=== PATIENT | female | born 1995 | race Caucasian/White ===

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

== ENCOUNTER 2017-01-08 07:50 | Observation (INO) | payer MEDICAID ==
[~2017-01-08 07:50] MED LIST: PREN-96 PO
[2017-01-08] MEDS ORDERED: NALBUPHINE HCL 10 MG/1ml INJECTION IM ONE (09:15)
== END 2017-01-08 12:00 | disposition home or self-care (01) | DRG 566 ==
LOC: LDRP 07:50
PROVIDERS: ADMIT Obstetrics & Gynecology; ATTEND Obstetrics & Gynecology
DX: O62.9 Abnormality of forces of labor, unspecified (principal); Z3A.38 38 weeks gestation of pregnancy
CPT/HCPCS: 59025; 81002; 96372; G0378; J2300

== ENCOUNTER 2017-01-17 16:00 | Observation (INO) | payer MEDICAID ==
[2017-01-17 16:58] LABS: Urine Bilirubin Negative (Negative); Urine Blood 1+ /uL (Negative); Urine Color Yellow (Yellow); Urine Glucose Normal (Normal); Urine Ketone Negative (Negative); Urine Nitrite POSITIVE (Negative); Urine RBC 16 /hpf (0 - 4); Urine Squamous Epithelial Cell MANY /hpf (<5); Urine Urobilinogen Normal (Negative); Urine WBC Clumps PRESENT /hpf (None Seen); Urine pH 6.5 (5.0-8.0)
[2017-01-17] MEDS ORDERED: NITR50CA24 PO (18:13)
== END 2017-01-17 17:00 | disposition home or self-care (01) | DRG 566 ==
LOC: LDRP 16:00
PROVIDERS: ADMIT Obstetrics & Gynecology; ATTEND Obstetrics & Gynecology
DX: O48.0 Post-term pregnancy (principal); Z3A.40 40 weeks gestation of pregnancy
CPT/HCPCS: 59025; 76818; 81001; 81002; G0378

== ENCOUNTER 2017-04-04 11:46 | Inpatient (IN) | payer MEDICAID ==
[~2017-04-04] VITALS: Ht 175.3 cm; Wt 66.6 kg
[2017-04-04] MEDS ORDERED: SODIUM CHLORIDE 0.9% 1,000 ML IVB ONE (12:05)
[2017-04-04] MEDS ORDERED: PANTOPRAZOLE 40 MG/10 ML VIAL IV STA (12:05)
[2017-04-04] MEDS ORDERED: MORPHINE SULF INJ 2 MG/ML SYRINGE 1ML IV ONE ×2 (12:15→14:15)
[2017-04-04] MEDS ORDERED: ONDANSETRON HCL 4 MG/2 ML VIAL IV ONE (12:15)
[2017-04-04 12:38] LABS: Basophils # (auto) 0.1 uL; Basophils % (auto) 0.5 % (0.0-2.0); Eosinophils # (auto) 0 uL; Hemoglobin 10.7 g/dL (12.2-16.2); Lymphocytes # (auto) 0.6 uL; Lymphocytes % (auto) 3.6 % (10.0-50.0); Mean Corpuscular Hgb Conc. 32.4 g/dL (32.0-36.0); Mean Corpuscular Volume 83.5 fL (80.0-100.0); Mean Platelet Volume 8.2 fL (6.9-10.8); Monocytes # (auto) 1.2 uL; Neutrophils # (auto) 15.8 uL; Neutrophils % (auto) 88.9 % (37.0-80.0); Platelet Count (auto) 260 10^3/uL (140-450); Red Cell Distribution Width 16.6 % (11.8-14.3); White Blood Cell 17.8 10^3/uL (4.4-10.8)
[2017-04-04 13:00] LABS: Albumin 3.6 g/dL (3.4-5.0); BUN/Creatinine Ratio 9.9; Bilirubin, Total 1.1 mg/dL (0.2-1.0); Calcium 9.2 mg/dL (8.5-10.1); Magnesium 1.9 mg/dL (1.6-2.6); Potassium 3.3 mmol/L (3.5-5.1); Total Protein 8.1 g/dL (6.4-8.2)
[2017-04-04] MEDS ORDERED: LEVOFLOXACIN 500MG 100 ML IV ONE (14:15)
[2017-04-04 14:19] LABS: Urine Bilirubin Negative (Negative); Urine Blood 2+ /uL (Negative); Urine Color Yellow (Yellow); Urine Glucose Normal (Normal); Urine Ketone Negative (Negative); Urine Mucus FEW (None Seen); Urine Nitrite Negative (Negative); Urine RBC 11 /hpf (0 - 4); Urine Squamous Epithelial Cell FEW /hpf (<5); Urine Urobilinogen Normal (Negative); Urine WBC Clumps PRESENT /hpf (None Seen); Urine pH 6.5 (5.0-8.0)
[2017-04-04] MEDS ORDERED: POTASSIUM CHL 10 Meq TABLET PO ONE (14:30)
[2017-04-04] MEDS ORDERED: LABETALOL HCL 5 MG/ML ML 20ML VIAL IV PRN (14:30)
[2017-04-04] MEDS ORDERED: HYDROcodone-ACET 5/325MG TAB PO PRN (14:30)
[2017-04-04] MEDS ORDERED: ACETAMINOPHEN 325 MG TAB PO PRN (14:30)
[2017-04-04] MEDS ORDERED: DOCUSATE SOD 100 MG CAP PO PRN (14:30)
[2017-04-04] MEDS ORDERED: TEMAZEPAM 15 MG CAP PO PRN (14:30)
[2017-04-04] MEDS: SODIUM CHLORIDE 0.9% 1,000 ML IV SCH ×2 (14:37→22:40)
[2017-04-04] MEDS ORDERED: VANCOMYCIN PER PHARMACY 0 MG IV SCH (16:50)
[2017-04-04 17:16] VITALS: BP_SYST 112; BP_DIAS 65; BP_DIAS 96
[2017-04-04] MEDS ORDERED: VANCOMYCIN 1GM/250ML 250 ML IV ONE (17:45)
[2017-04-04] MEDS: ONDANSETRON HCL 4 MG/2 ML VIAL IV PRN ×2 (18:41→23:21)
[2017-04-04] MEDS: MORPHINE SULF INJ 2 MG/ML SYRINGE 1ML IV PRN ×2 (19:03→23:21)
[2017-04-04] MEDS: FAMOTIDINE 20 MG TAB PO SCH (21:51)
[2017-04-04 22:00] VITALS: BP 97/52
[2017-04-04 23:10] VITALS: BP 114/67
[2017-04-05] MEDS: SODIUM CHLORIDE 0.9% 1,000 ML IV SCH ×3 (02:21→23:40)
[2017-04-05 05:00] VITALS: BP 99/52
[2017-04-05 05:52] LABS: Basophils # (auto) 0 uL; Eosinophils # (auto) 0 uL; Eosinophils % (auto) 0.2 % (0.0-7.0); Hemoglobin 8.1 g/dL (12.2-16.2); Monocytes # (auto) 0.4 uL
[2017-04-05 05:56] LABS: INR 1.1 (0.9-1.15)
[2017-04-05 05:57] LABS: Basophils % (auto) 0.5 % (0.0-2.0); Hematocrit 24.1 % (36.0-46.0); Lymphocytes # (auto) 0.7 uL; Lymphocytes % (auto) 7.3 % (10.0-50.0); Mean Corpuscular Hemoglobin 27.6 pg (28.0-32.0); Mean Corpuscular Hgb Conc. 33.3 g/dL (32.0-36.0); Mean Corpuscular Volume 82.7 fL (80.0-100.0); Mean Platelet Volume 8.3 fL (6.9-10.8); Monocytes % (auto) 4.2 % (0.0-12.0); Neutrophils % (auto) 87.8 % (37.0-80.0); Platelet Count (auto) 152 10^3/uL (140-450); Red Cell Distribution Width 16.2 % (11.8-14.3); White Blood Cell 9.1 10^3/uL (4.4-10.8)
[2017-04-05 06:16] LABS: Albumin 2.4 g/dL (3.4-5.0); Calcium 8.6 mg/dL (8.5-10.1); Potassium 3.7 mmol/L (3.5-5.1)
[2017-04-05 06:19] LABS: Bilirubin, Total 0.5 mg/dL (0.2-1.0); Total Protein 6.2 g/dL (6.4-8.2)
[2017-04-05 08:00] VITALS: BP 99/59
[2017-04-05] MEDS: MORPHINE SULF INJ 2 MG/ML SYRINGE 1ML IV PRN ×2 (08:44→20:18)
[2017-04-05 09:12] VITALS: BP 99/59
[2017-04-05] MEDS: LEVOFLOXACIN 250MG 50 ML IV SCH (10:00)
[2017-04-05] MEDS ORDERED: VANCOMYCIN 1GM/250ML 250 ML IV SCH ×2 (12:00→18:00)
[2017-04-05] MEDS ORDERED: LEVOFLOXACIN 500MG 100 ML IV ONE (12:37)
[2017-04-05] MEDS ORDERED: fentaNYL CITRATE 100 MCG/2 ML VL ONE (12:55)
[2017-04-05] MEDS ORDERED: MIDAZOLAM HCL 1MG/1ML-2 ML VIAL ONE (12:55)
[2017-04-05 13:00] VITALS: BP 98/53
[2017-04-05] MEDS ORDERED: DEXAMETHASONE SOD PHOS 10MG/1ML VIAL INJ ONE (13:00)
[2017-04-05] MEDS ORDERED: LABETALOL HCL 5 MG/ML 4ML SYRINGE IV PRN (13:00)
[2017-04-05] MEDS ORDERED: KETOROLAC TROMETH 30 MG/ML 1ML VIAL IV ONE (13:00)
[2017-04-05] MEDS ORDERED: ONDANSETRON HCL 4 MG/2 ML VIAL IV ONE (13:00)
[2017-04-05] MEDS ORDERED: HYDROmorphone HCL 2 MG/ML VL IV PRN (13:00)
[2017-04-05] MEDS ORDERED: ePHEDrine SULFATE 50 MG/ML AMP IV PRN (13:00)
[2017-04-05] MEDS ORDERED: KETOROLAC TROMETH 30 MG/ML 1ML VIAL ONE (13:03)
[2017-04-05] MEDS ORDERED: MORPHINE SULF INJ 2 MG/ML SYRINGE 1ML IV ONE (14:00)
[2017-04-05 16:58] VITALS: BP 107/69
[2017-04-05] MEDS: MULTIPLE VITAMIN TAB PO SCH (18:31)
[2017-04-05] MEDS: FAMOTIDINE 20 MG TAB PO SCH ×2 (18:31→21:29)
[2017-04-05] MEDS: ONDANSETRON HCL 4 MG/2 ML VIAL IV PRN (20:17)
[2017-04-05 21:58] VITALS: BP 105/70
[2017-04-06 05:20] VITALS: BP 101/65
[2017-04-06 06:20] LABS: Basophils # (auto) 0 uL; Basophils % (auto) 0.1 % (0.0-2.0); Eosinophils # (auto) 0 uL; Hematocrit 28.4 % (36.0-46.0); Hemoglobin 9.3 g/dL (12.2-16.2); Lymphocytes # (auto) 0.6 uL; Lymphocytes % (auto) 7.4 % (10.0-50.0); Mean Corpuscular Hemoglobin 27.3 pg (28.0-32.0); Mean Corpuscular Hgb Conc. 32.9 g/dL (32.0-36.0); Mean Corpuscular Volume 83.1 fL (80.0-100.0); Mean Platelet Volume 8.5 fL (6.9-10.8); Monocytes # (auto) 0.3 uL; Monocytes % (auto) 3.5 % (0.0-12.0); Neutrophils # (auto) 6.8 uL; Platelet Count (auto) 184 10^3/uL (140-450); Red Cell Distribution Width 15.8 % (11.8-14.3); White Blood Cell 7.6 10^3/uL (4.4-10.8)
[2017-04-06 06:43] LABS: Albumin 2.8 g/dL (3.4-5.0); BUN/Creatinine Ratio 18.9; Bilirubin, Total 0.4 mg/dL (0.2-1.0); Calcium 9.1 mg/dL (8.5-10.1); Potassium 4.2 mmol/L (3.5-5.1); Total Protein 7.1 g/dL (6.4-8.2)
[2017-04-06] MEDS: SODIUM CHLORIDE 0.9% 1,000 ML IV SCH (07:06)
[2017-04-06 08:40] VITALS: BP 118/64
[2017-04-06] MEDS: FAMOTIDINE 20 MG TAB PO SCH (10:07)
[2017-04-06] MEDS: LEVOFLOXACIN 250MG 50 ML IV SCH (10:07)
[2017-04-06] MEDS: MULTIPLE VITAMIN TAB PO SCH (10:07)
[2017-04-06] MEDS ORDERED: LEVO250T45 PO (10:24)
[2017-04-06 11:52] VITALS: BP 118/64
[2017-04-06 12:50] VITALS: BP 120/69
== END 2017-04-06 12:48 | disposition home or self-care (01) | DRG 720 ==
LOC: ER 11:46 → OVERFLOW 11:47 → WEST WING 17:18
PROVIDERS: ADMIT Internal Medicine; ATTEND Nurse Practitioner Acute Care
PROC: 0T778DZ Dilation of Left Ureter with Intraluminal Device, Via Natural or Artificial Opening Endoscopic (ICD-10-PCS; principal; 2017-04-05 12:58)
DX: A41.9 Sepsis, unspecified organism (principal); N17.0 Acute kidney failure with tubular necrosis; N13.2 Hydronephrosis with renal and ureteral calculous obstruction; D63.8 Anemia in other chronic diseases classified elsewhere; E44.1 Mild protein-calorie malnutrition; E87.6 Hypokalemia; I12.9 Hypertensive chronic kidney disease with stage 1 through stage 4 chronic kidney disease, or unspecified chronic kidney disease; K76.0 Fatty (change of) liver, not elsewhere classified; N18.3 Chronic kidney disease, stage 3 (moderate); N12 Tubulo-interstitial nephritis, not specified as acute or chronic; G47.00 Insomnia, unspecified; K59.00 Constipation, unspecified; Z91.018 Allergy to other foods; Z79.899 Other long term (current) drug therapy; Z68.21 Body mass index [BMI] 21.0-21.9, adult; Z88.0 Allergy status to penicillin
CPT/HCPCS: 36415; 74000; 74176; 76000; 80053; 80202; 81001; 82150; 83605; 83690; 83735; 84443; 84702; 85025; 85610; 87040; 87086; 96365; 96375; C9113; J1100; J1885; J1956; J2250; J2405

== ENCOUNTER 2021-07-18 02:37 | Emergency (ER) | payer MEDICAID ==
[~2021-07-18] VITALS: Ht 180.3 cm; Wt 88.5 kg
[~2021-07-18 02:37] MED LIST changes: +LEVO-28 PO; -PREN-96 PO
[2021-07-18 04:49] LABS: Urine Bacteria FEW /hpf (None Seen); Urine Blood Negative /uL (Negative); Urine Mucus FEW (None Seen); Urine Specific Gravity 1.019 (1.001-1.035); Urine WBC 28 /hpf (0 - 5)
[2021-07-18] MEDS ORDERED: SODIUM CHLORIDE 0.9% 1,000 ML IVB ONE (07:00)
[2021-07-18] MEDS ORDERED: cefTRIAXone 1GM/50ML D5W 50 ML IV ONE (07:00)
[2021-07-18 07:04] LABS: Basophils # (auto) 0 10 ^3/uL (0-0.2); Basophils % (auto) 0.4 % (0.0-2.0); Eosinophils # (auto) 0 10 ^3/uL (0-0.8); Eosinophils % (auto) 0.2 % (0.0-7.0); Hematocrit 33.8 % (36.0-46.0); Hemoglobin 11.6 g/dL (12.2-16.2); Lymphocytes % (auto) 15.3 % (10.0-50.0); Mean Corpuscular Hemoglobin 27.7 pg (28.0-32.0); Mean Corpuscular Hgb Conc. 34.4 g/dL (32.0-36.0); Mean Corpuscular Volume 80.4 fL (80.0-100.0); Monocytes # (auto) 0.5 10 ^3/uL (0-1.3); Monocytes % (auto) 7.4 % (0.0-12.0); Neutrophils # (auto) 4.9 10 ^3/uL (1.6-8.6); Neutrophils % (auto) 76.7 % (37.0-80.0); Red Cell Distribution Width 15.7 % (11.8-14.3); White Blood Cell 6.4 10^3/uL (4.4-10.8)
[2021-07-18 07:17] LABS: Albumin 3.2 g/dL (3.4-5.0); BUN/Creatinine Ratio 9.2; Potassium 3.6 mmol/L (3.5-5.1)
[2021-07-18 07:20] LABS: Bilirubin, Total 0.7 mg/dL (0.2-1.0)
[2021-07-18 12:02] VITALS: BP 92/58
== END 2021-07-18 12:10 | disposition home or self-care (01) ==
LOC: ER 02:37
DX: O21.0 Mild hyperemesis gravidarum (principal); O23.42 Unspecified infection of urinary tract in pregnancy, second trimester; N39.0 Urinary tract infection, site not specified; E86.1 Hypovolemia; R55 Syncope and collapse; Z3A.22 22 weeks gestation of pregnancy
CPT/HCPCS: 36415; 80053; 81001; 81025; 83605; 83735; 84443; 84702; 85025; 85379; 87040; 87086; 96365; 99285; J0696; J7030

== ENCOUNTER 2021-12-23 08:34 | Day surgery (SDC) | payer MEDICAID ==
[2021-12-22 14:38] LABS: Basophils # (auto) 0 10 ^3/uL (0-0.2); Basophils % (auto) 0.2 % (0.0-2.0); Eosinophils # (auto) 0 10 ^3/uL (0-0.8); Eosinophils % (auto) 0.4 % (0.0-7.0); Hematocrit 32.6 % (36.0-46.0); Hemoglobin 10.7 g/dL (12.2-16.2); Lymphocytes # (auto) 1.5 10 ^3/uL (0.4-5.4); Lymphocytes % (auto) 17.9 % (10.0-50.0); Mean Corpuscular Hgb Conc. 32.8 g/dL (32.0-36.0); Mean Corpuscular Volume 88.6 fL (80.0-100.0); Monocytes # (auto) 0.5 10 ^3/uL (0-1.3); Monocytes % (auto) 5.8 % (0.0-12.0); Neutrophils # (auto) 6.5 10 ^3/uL (1.6-8.6); Neutrophils % (auto) 75.7 % (37.0-80.0); Red Blood Cells 3.68 10^6/uL (4.0-5.20); White Blood Cell 8.6 10^3/uL (4.4-10.8)
[2021-12-22 15:07] LABS: Albumin 2.7 g/dL (3.4-5.0); BUN/Creatinine Ratio 8.4; Calcium 8.7 mg/dL (8.5-10.1); Potassium 3.9 mmol/L (3.5-5.1)
[2021-12-22 15:09] LABS: INR 0.94 (0.9-1.15); Partial Thromboplastin Time 24.1 sec (24.6-33.4)
[2021-12-22 15:10] LABS: Bilirubin, Total 0.6 mg/dL (0.2-1.0); Total Protein 6.9 g/dL (6.4-8.2)
[2021-12-22 15:23] LABS: Urine Bacteria FEW /hpf (None Seen); Urine Blood Negative /uL (Negative); Urine Mucus FEW (None Seen); Urine Specific Gravity 1.022 (1.001-1.035); Urine WBC 26 /hpf (0 - 5)
[~2021-12-23] VITALS: Ht 180.3 cm; Wt 98.4 kg
[2021-12-23] MEDS ORDERED: LIDOCAINE 1%-Mpf/Epinephrine 1:200,000 ONE (09:49)
[2021-12-23 11:09] VITALS: BP 110/58
== END 2021-12-23 11:00 | disposition home or self-care (01) ==
LOC: SUR 08:34
PROVIDERS: ATTEND Surgery
DX: N64.59 Other signs and symptoms in breast (principal); D24.1 Benign neoplasm of right breast; L91.8 Other hypertrophic disorders of the skin; Z98.890 Other specified postprocedural states; Z79.899 Other long term (current) drug therapy; Z20.822 Contact with and (suspected) exposure to COVID-19; Z88.0 Allergy status to penicillin; Z86.2 Personal history of diseases of the blood and blood-forming organs and certain disorders involving the immune mechanism; Z82.49 Family history of ischemic heart disease and other diseases of the circulatory system; Z80.8 Family history of malignant neoplasm of other organs or systems; Z84.1 Family history of disorders of kidney and ureter
CPT/HCPCS: 19120; 36415; 80053; 81001; 84702; 85025; 85610; 85730; 88305; J2001; U0003

== ENCOUNTER 2022-02-17 09:03 | Observation (INO) | payer MEDICAID ==
[~2022-02-17 09:03] MED LIST changes: +CEPH-322 PO; +PREN-129 PO
== END 2022-02-17 11:10 | disposition home or self-care (01) ==
LOC: LDRP 09:18 → UNDOADMOB 09:51 → LDRP 09:51 → UNDODISOB 11:10
PROVIDERS: ADMIT Obstetrics & Gynecology; ATTEND Obstetrics & Gynecology
DX: O48.0 Post-term pregnancy (principal); O26.893 Other specified pregnancy related conditions, third trimester; N89.8 Other specified noninflammatory disorders of vagina; Z3A.40 40 weeks gestation of pregnancy
CPT/HCPCS: 59025; 76818; 81002; 94760; G0378

== ENCOUNTER 2022-02-20 08:50 | Inpatient (IN) | payer MEDICAID ==
[~2022-02-20] VITALS: Ht 180.3 cm; Wt 102.5 kg
[2022-02-20] MEDS ORDERED: PROMETHAZINE HCL 25 MG/ML 1ML IV PRN (09:15)
[2022-02-20] MEDS ORDERED: LIDOCAINE 2%HCL (LOCAL ANESTH.) INJ 10ml MDV IJ PRN (09:15)
[2022-02-20] MEDS ORDERED: DERMOPLAST 60ML BOTTLE TOP PRN (09:15)
[2022-02-20] MEDS ORDERED: LACTATED RINGER'S 1,000 ML IV SCH (09:15)
[2022-02-20] MEDS ORDERED: BUTORPHANOL TARTRATE 2 MG/1 ML VIAL IV PRN ×2 (09:15)
[2022-02-20] MEDS ORDERED: PHISODERM TOP SOLN 240ML BTL TOP PRN (09:15)
[2022-02-20] MEDS ORDERED: WITCH HAZEL-GLYCERIN PAD TOP PRN (09:15)
[2022-02-20 09:48] LABS: Basophils # (auto) 0 10 ^3/uL (0-0.2); Basophils % (auto) 0.4 % (0.0-2.0); Eosinophils # (auto) 0 10 ^3/uL (0-0.8); Eosinophils % (auto) 0.3 % (0.0-7.0); Hematocrit 31.6 % (36.0-46.0); Hemoglobin 10.6 g/dL (12.2-16.2); Lymphocytes # (auto) 1.7 10 ^3/uL (0.4-5.4); Lymphocytes % (auto) 16.5 % (10.0-50.0); Mean Corpuscular Hemoglobin 27.8 pg (28.0-32.0); Mean Corpuscular Hgb Conc. 33.5 g/dL (32.0-36.0); Mean Corpuscular Volume 82.9 fL (80.0-100.0); Monocytes # (auto) 0.6 10 ^3/uL (0-1.3); Neutrophils # (auto) 7.9 10 ^3/uL (1.6-8.6); Neutrophils % (auto) 76.8 % (37.0-80.0); Nucleated Red Blood Cells % 0.1 %; Red Blood Cells 3.81 10^6/uL (4.0-5.20); Red Cell Distribution Width 14.2 % (11.8-14.3); White Blood Cell 10.2 10^3/uL (4.4-10.8)
[2022-02-20 10:00] LABS: Albumin 2.4 g/dL (3.4-5.0); Calcium 8.5 mg/dL (8.5-10.1); INR 0.91 (0.9-1.15); Partial Thromboplastin Time 23.1 sec (24.6-33.4); Potassium 3.8 mmol/L (3.5-5.1)
[2022-02-20 10:03] LABS: BUN/Creatinine Ratio 10.9; Bilirubin, Total 0.4 mg/dL (0.2-1.0); Total Protein 6.2 g/dL (6.4-8.2)
[2022-02-20 10:27] LABS: Urine Bacteria FEW /hpf (None Seen); Urine Blood Negative /uL (Negative); Urine Specific Gravity 1.016 (1.001-1.035); Urine WBC 8 /hpf (0 - 5)
[2022-02-20 10:42] LABS: Alcohol, Urine < 3.0 mg/dL (0-10); Amphetamine Screen, Urine NEGATIVE (NEGATIVE); Barbiturate Scree,Urine NEGATIVE (NEGATIVE); Benzodiazephine Screen, Urine NEGATIVE (NEGATIVE); Cannabinoid Screen, Urine NEGATIVE (NEGATIVE); Cocaine Screen, Urine NEGATIVE (NEGATIVE); Opiate Scree,Urine NEGATIVE (NEGATIVE); Phencyclidine Screen, Urine NEGATIVE (NEGATIVE)
[2022-02-20] MEDS ORDERED: LACT. RINGERS/OXYTOCIN 20UNITS 1,000 ML IV SCH (11:00)
[2022-02-20] MEDS ORDERED: TERBUTALINE SULFATE 1 MG/ML 1ML VIAL SC PRN (11:00)
[2022-02-20] MEDS ORDERED: NALOXONE HCL 0.4 MG/ML VIAL IV ONE (16:15)
[2022-02-20] MEDS ORDERED: ePHEDrine SULFATE 50 MG/ML AMP IV ONE (16:15)
[2022-02-20] MEDS ORDERED: fentaNYL CITRATE 100 MCG/2 ML VL IV ONE (16:15)
[2022-02-20] MEDS ORDERED: ROPIVACAINE HCL 200 ML EPI SCH (16:15)
[2022-02-20] MEDS ORDERED: DOCUSATE SOD 100 MG CAP PO PRN (19:00)
[2022-02-20] MEDS ORDERED: ONDANSETRON ODT 4 MG TAB PO PRN (19:00)
[2022-02-20] MEDS ORDERED: ACETAMINOPHEN 325 MG TAB PO PRN (19:00)
[2022-02-20 23:00] VITALS: BP 125/75
[2022-02-21] MEDS: IBUPROFEN 800 MG TAB PO SCH ×4 (00:35→17:28)
[2022-02-21 03:00] VITALS: BP 103/51
[2022-02-21] MEDS ORDERED: IBUP800T26 PO ×2 (06:07)
[2022-02-21 06:46] VITALS: BP 103/55
[2022-02-21] MEDS ORDERED: LIDOCAINE HCL 2 %PF INJ 10ML AMP IJ ONE (07:00)
[2022-02-21] MEDS ORDERED: fentaNYL CITRATE 100 MCG/2 ML VL IV ONE (07:00)
[2022-02-21] MEDS ORDERED: ROPIVACAINE HCL 200 ML EPI SCH (07:00)
[2022-02-21] MEDS ORDERED: NALOXONE HCL 0.4 MG/ML VIAL IV ONE (07:00)
[2022-02-21] MEDS ORDERED: ePHEDrine SULFATE 50 MG/ML AMP IV ONE (07:00)
[2022-02-21 07:06] LABS: RPR Non Reactive (Non Reactive)
[2022-02-21 15:00] VITALS: BP 128/82
[2022-02-21 18:30] VITALS: BP 108/56
[2022-02-21 23:00] VITALS: BP 104/58
== END 2022-02-21 23:51 | disposition home or self-care (01) | DRG 560 ==
LOC: LDRP 08:50
PROVIDERS: ADMIT Obstetrics & Gynecology Obstetrics; ATTEND Obstetrics & Gynecology Obstetrics
PROC: 10E0XZZ Delivery of Products of Conception, External Approach (ICD-10-PCS; principal; 2022-02-20)
PROC: 3E0R3BZ Introduction of Anesthetic Agent into Spinal Canal, Percutaneous Approach (ICD-10-PCS; 2022-02-20)
PROC: 00HU33Z Insertion of Infusion Device into Spinal Canal, Percutaneous Approach (ICD-10-PCS; 2022-02-20)
DX: O48.0 Post-term pregnancy (principal); Z37.0 Single live birth; O69.81X0 Labor and delivery complicated by cord around neck, without compression, not applicable or unspecified; Z20.822 Contact with and (suspected) exposure to COVID-19; Z3A.40 40 weeks gestation of pregnancy
CPT/HCPCS: 36415; 59025; 59409; 62282; 80053; 80307; 81001; 81002; 85025; 85610; 85730; 86592; 86850; 86900; 86901; 87426; 94760; 96360; 96361; 96366; G0378; J2590